=== PATIENT | female | born 1935 | race African-American/Black ===

== ENCOUNTER 2020-04-29 11:34 | Day surgery (SDC) | payer MEDICARE, MEDICAID ==
[~2020-04-29] VITALS: Ht 170.2 cm; Wt 55.5 kg
[2020-04-29 11:56] LABS: HEMOGLOBIN 10.6 g/dL (12-16); MCH 27.5 pg (26.0-34.0); MCHC 32.1 g/dL (31.0-37.0); MCV 85.5 fL (80.0-100.0); MEAN PLATELET VOLUME 8.7 fL (7.4-10.4); PLATELET COUNT 221 10x3/uL (130-400); RBC 3.86 10x6/uL (4.00-5.40); RDW 15.2 % (11.5-14.5); WBC 2.6 10x3/uL (4.8-10.8)
[2020-04-29] MEDS ORDERED: CYCLOBENZAPRINE10 MG PO (12:08)
[2020-04-29] MEDS ORDERED: ZETIA10 MG PO (12:08)
[2020-04-29] MEDS ORDERED: NORVASC10 MG PO (12:08)
[2020-04-29] MEDS ORDERED: BENICAR40 MG PO (12:09)
[2020-04-29] MEDS ORDERED: LINZESS290 MCG PO (12:09)
[2020-04-29] MEDS ORDERED: CRESTOR10 MG PO (12:09)
[2020-04-29] MEDS ORDERED: PEPCID40 MG PO (12:09)
[2020-04-29] MEDS ORDERED: REMERON15 MG PO (12:09)
[2020-04-29 12:10] LABS: CALC OSMOLALITY 274 mosm/kg (275-300); CALCIUM 9.6 mg/dL (8.5-10.1); CARBON DIOXIDE 26.6 mmol/L (21.0-32.0); CHLORIDE - SERUM 103 mmol/L (98-107); CREATININE - SERUM 0.7 mg/dL (0.6-1.3); GLUCOSE 109 mg/dL (74-106); POTASSIUM - SERUM 3.7 mmol/L (3.5-5.1); SODIUM 137 mmol/L (136-145); UREA NITROGEN 12 mg/dL (7-18); eGFR NON AFRICAN AMERICAN 85 mL/min (90-120)
[2020-04-29] MEDS ORDERED: HYDROCODON-ACE1 EA10 PO (12:10)
[2020-04-29 12:27] VITALS: BP 147/73; Ht 170.2 cm; Wt 55.5 kg
[2020-04-29 13:50] LABS: EOSINOPHILS 2 % (0-7); LYMPHOCYTES 35 % (15-50); MONOCYTES 8 % (2-11); NEUTROPHILS 54 % (40-80); PLATELET ESTIMATE NORMAL; ROULEAUX OCC
--- NOTE | 2020-04-29 14:15 | NUR ---
PATIENT AMBULATING AROUND ROOM WITHOUT DIZZINESS, RIGHT HAND PIV DC'D WITH TIP INTACT. PATIENT DRESSING IN PERSONAL CLOTHING
--- NOTE | 2020-05-09 17:48 | OP ---
PATIENT NAME: JOHN CHAU MEDICAL RECORD: [id number] LOCATION:[facility] ADMISSION DATE: SURGEON: ISA MUHAMMAD DO DATE OF OPERATION: 04/29/2020 PROCEDURE: EGD with biopsies. INDICATIONS FOR PROCEDURE: Nausea and vomiting, decreased appetite, generalized abdominal pain, unintentional weight loss. SCOPE: Olympus video gastroscope. MEDICATIONS: Propofol 100 mg IV per anesthesia. ESTIMATED BLOOD LOSS: Minimal. COMPLICATIONS: None. FINDINGS: Informed consent was given. The patient was made comfortable with the above medication. After reaching an adequate level of sedation by slow IV push, the patient was placed on her left side. The endoscope was advanced under direct visualization through the mouth to the second portion of the duodenum. The entire esophagus appeared normal to the GE junction. At the GE junction, there was very minimal signs of LA class A reflux-induced esophagitis. The endoscope was advanced beyond the GE junction into the stomach and retroflexed to view the cardia and fundus. There was a small sliding hiatal hernia present. The mucosa throughout the stomach appeared normal. Cold forceps, biopsies were taken from the antrum to submit for histopathology and to rule out the presence of H. pylori. The endoscope was advanced beyond the pylorus into the duodenum, which appeared normal to the second portion. The endoscope was then withdrawn from the patient. The patient tolerated the procedure well and there were no complications. IMPRESSION: 1. LA class A reflux-induced esophagitis. 2. Small sliding hiatal hernia. PLAN AND RECOMMENDATIONS: 1. Discharge home when recovery parameters are met. 2. Follow up biopsy specimen results. 3. High fiber diet. 4. Continue current medications, but increase Linzess to 290 mcg daily from 145 mcg daily. The patient's symptoms have improved significantly since improving her severity of constipation with the Linzess. 5. Follow up in GI clinic in 6-8 weeks. TRANSINT:[id number] Voice Confirmation ID: [id number] DOCUMENT ID: [id number] OPERATIVE REPORT [id number] JOHN CHAU ISA MUHAMMAD DO at 1742 CC: [id number] DICTATION DATE: 04/29/20 1336 [facility] MAN: 04/29/20 [id number] [facility] 04/29/20 [facility] [address] [place] [address]
== END 2020-04-29 14:38 | disposition home or self-care (01) ==
LOC: D.OPS 11:34
PROVIDERS: Anesthesiology; ATTEND Internal Medicine Gastroenterology
DX: R11.2 Nausea with vomiting, unspecified (principal); R63.0 Anorexia; R10.84 Generalized abdominal pain; R63.4 Abnormal weight loss; K21.0 Gastro-esophageal reflux disease with esophagitis; K44.9 Diaphragmatic hernia without obstruction or gangrene; K59.00 Constipation, unspecified